=== PATIENT | female | born 1995 | race Caucasian/White ===

== ENCOUNTER 2019-04-17 13:43 | Outpatient (REF) | payer SELFPAY ==
[2019-04-20 13:34] LABS: Chlamydia Result Negative; GC Result Negative; Specimen Description CERVIX
== END 2019-04-17 14:03 ==
LOC: LBN 13:43
PROVIDERS: PCP Pediatrics; Visit Provider Nurse Practitioner Women's Health
DX: Z11.3 Encounter for screening for infections with a predominantly sexual mode of transmission (principal)
CPT/HCPCS: 87491; 87591

== ENCOUNTER 2019-07-03 11:31 | Outpatient (CLI) | payer MEDICAID, SELFPAY ==
[2019-07-04 10:19] LABS: HIV-1/2 Ag & Ab Screen Negative (NEGAT)
[2019-07-06 11:03] LABS: Hepatitis B Surface Ag Negative (NEGAT); Hepatitis C Ab w Rflx HCV PCR Negative (NEGAT)
[2019-07-06 12:26] LABS: Syphilis Serology (RPR) Negative (Negative)
[2019-07-06 15:30] LABS: Chlamydia Result Negative; GC Result Negative; Specimen Description CERVIX
== END 2019-07-03 11:51 ==
PROVIDERS: Visit Provider Nurse Practitioner Women's Health
DX: Z11.3 Encounter for screening for infections with a predominantly sexual mode of transmission (principal)
CPT/HCPCS: 36415; 86803; 87340; 87389; 87491; 87591; 86592

== ENCOUNTER 2019-07-15 12:52 | Outpatient (REF) | payer MEDICAID, SELFPAY ==
[2019-07-15 19:32] LABS: HCT 39.8 % (36.0-46.0); HGB 13.2 g/dL (12.0-15.5); Mean Corp. HGB Concentration 33.2 g/dL (32.0-36.0); Mean Corpuscular Hemoglobin 28.9 pg (27.0-33.0); Mean Corpuscular Volume 87.1 fL (80-95); Mean Platelet Volume 8.9 fL (8.0-11.0); Platelet Count 373 x1000/uL (130-400); RBC 4.57 m/cumm (4.00-5.20); RBC Distribution Width 12.7 % (11.7-14.6); White Blood Cell Count 4.47 k/cumm (4.4-10.8)
[2019-07-15 19:56] LABS: Anion Gap 12.5 mmol/L (3-11); BUN 12 mg/dL (7-18); CO2 25.5 mmol/L (21.0-32.0); CREATININE 0.75 mg/dL (0.55-1.02); Calcium 9.2 mg/dL (8.5-10.1); Chloride 100 mmol/L (98-107); Glucose 74 mg/dL (70-100); Potassium 4.1 mmol/L (3.5-5.1); Sodium 138 mmol/L (136-145); TSH (W/Ref FT4) 1.82 uIU/mL (0.36-3.74)
[2019-07-17 10:59] LABS: Campylobacter PCR SEE COMMENTS; Salmonella PCR SEE COMMENTS; Shiga Toxin PCR SEE COMMENTS; Shigella/Enteroinvasive Ecoli SEE COMMENTS
[2019-07-20 11:12] LABS: IgA 163 mg/dL (85-499)
[2019-07-20 18:39] LABS: Tissue Transglutaminase Ab IgA <1.2 U/mL
== END 2019-07-15 13:12 ==
LOC: NCHCN 12:52
PROVIDERS: Visit Provider Family Medicine
DX: R19.7 Diarrhea, unspecified (principal); F41.8 Other specified anxiety disorders; R14.0 Abdominal distension (gaseous)
CPT/HCPCS: 80048; 82784; 85027; 87329; 87505; 83516; 83630; 84443; 87324

== ENCOUNTER 2020-02-01 15:43 | Outpatient (REF) | payer MEDICAID, SELFPAY | END 2020-02-01 16:03 | LOC: LBN 15:43 | PROVIDERS: Visit Provider Obstetrics & Gynecology | DX: N94.9 Unspecified condition associated with female genital organs and menstrual cycle (principal) | CPT/HCPCS: 87077; 87070; 87186; 87205 ==

== ENCOUNTER 2020-03-07 13:56 | Outpatient (REF) | payer MEDICAID, SELFPAY ==
--- NOTE | 2020-03-07 13:30 | PAPFT_PTH ---
PATIENT: Anige Duvall LOC: [facility] U#:[id number] AGE/SX: 24/F ROOM: RE03/07/[address]: UNA Conde : 1995 BED: DIS: 03/07/2020 SPEC #: [id number] RECD: 03/07/20 16:00 STATUS: TORRES QIU #: [id number] TYESHA: 03/07/20 13:[address]: Kat Garcia DEPT: [facility] Cytology RECD BY: Edgar Peterson Tissues: 1 - CX/ENDOCX FOR PAP SMEARS Procedures: PAP THIN PREP/[facility] Screening Comments: [id number]
[2020-03-09 14:57] LABS: Chlamydia Result Negative (Negative); GC Result Negative (Negative)
== END 2020-03-07 14:16 ==
LOC: LBN 13:56
PROVIDERS: Visit Provider Nurse Practitioner Family
DX: R30.0 Dysuria (principal); Z11.3 Encounter for screening for infections with a predominantly sexual mode of transmission; Z12.4 Encounter for screening for malignant neoplasm of cervix
CPT/HCPCS: 87491; 87591; 88142; 87086

== ENCOUNTER 2020-03-10 01:03 | Outpatient (CLI) | payer MEDICAID, SELFPAY ==
--- NOTE | 2020-03-10 09:06 | DI.US_ITS ---
EXAM: US PELVIS TRANSVAGINAL CLINICAL HISTORY: <Pelvic cramping AND PAIN, R10.2> TECHNIQUE: Ultrasound of the pelvic, both abdominal and transvaginal was performed using standard pr otocol. COMPARISON: No exams were available for comparison FINDINGS: KIDNEYS: Kidneys are symmetric in size. No evidence of renal calculi. No evidence of hydronephrosis. No renal mass or cyst identified. UTERUS: Position: Anteverted. Size: 7.7 by 3 x 4.2 cm Endometrium: 0.6 cm. Normal for patient's menstrual status. Myometrium: Unremarkable. Cervix: Small nabothian cyst. OVARIES: Right: 3.4 x 1.9 x 3 cm Cyst or mass: None. Left: 3 x 1.4 x 2.3 cm Cyst or mass: 2 small exophytic cysts measuring around 1 cm in size. No evidence of torsion.. DOPPLER: Color: Symmetric and uniform flow to both ovaries. No hyperemia. CUL-DE-SAC: Free fluid: None. IMPRESSION: 1. Unremarkable pelvic ultrasound. DATA REPOSITORY:
== END 2020-03-10 01:23 ==
PROVIDERS: PCP Family Medicine; Visit Provider Nurse Practitioner Family
DX: R10.2 Pelvic and perineal pain (principal); N83.292 Other ovarian cyst, left side
CPT/HCPCS: 76830; 76856

== ENCOUNTER 2020-12-06 16:55 | Outpatient (REF) | payer MEDICAID, SELFPAY ==
[2020-12-07 14:22] LABS: Chlamydia Result Negative (Negative); GC Result Negative (Negative)
== END 2020-12-06 17:15 ==
LOC: LBN 16:55
PROVIDERS: PCP Family Medicine; Visit Provider Nurse Practitioner Family
DX: R30.0 Dysuria (principal); Z11.3 Encounter for screening for infections with a predominantly sexual mode of transmission
CPT/HCPCS: 87491; 87591; 87086

== ENCOUNTER 2020-12-07 08:00 | Outpatient (CLI) | payer MEDICAID, SELFPAY ==
[2020-12-08 09:31] LABS: Hepatitis B Surface Ag Negative (Negative)
[2020-12-08 10:44] LABS: Hepatitis C Ab w Rflx HCV PCR Negative (Negative)
[2020-12-08 10:48] LABS: HIV-1/2 Ag & Ab Screen Negative (Negative)
[2020-12-09 13:19] LABS: Syphilis Total Ab w/Reflex Nonreactive (Nonreactive)
== END 2020-12-07 08:20 ==
PROVIDERS: PCP Family Medicine; Visit Provider Nurse Practitioner Family
DX: Z11.3 Encounter for screening for infections with a predominantly sexual mode of transmission (principal); Z11.4 Encounter for screening for human immunodeficiency virus [HIV]; Z11.59 Encounter for screening for other viral diseases
CPT/HCPCS: 36415; 86803; 87340; 87389; 86780

== ENCOUNTER 2021-04-13 20:50 | Outpatient (REF) | payer MEDICAID, SELFPAY ==
[2021-04-13 18:01] LABS: TSH (W/Ref FT4) 1.29 uIU/mL (0.36-3.74)
== END 2021-04-13 20:51 | disposition home or self-care (01) ==
LOC: NCHCN 20:50
PROVIDERS: PCP Family Medicine; Visit Provider Family Medicine
DX: K59.09 Other constipation (principal)
CPT/HCPCS: 84443

== ENCOUNTER 2021-04-14 13:11 | Outpatient (CLI) | payer MEDICAID, SELFPAY ==
--- NOTE | 2021-04-14 | DI.RAD_ITS ---
Exam(s) XR ABDOMEN FLAT PLATE EXAM: XR ABDOMEN FLAT PLATE CLINICAL HISTORY: CONSTIPATION,ABD BLOATING,R14.0,K59.09,COMMENT ON QUANTITY OF STOOL TECHNIQUE: COMPARISON: No exams were available for comparison FINDINGS: Two views were obtained. The bowel gas pattern is unremarkable. No evidence of constipation. No gr oss free air identified on these supine views. No gross organomegaly. IMPRESSION: Negative examination of the abdomen. Normal quantity of stool. RADIATION DOSE DELIVERED: Total DLP
== END 2021-04-14 13:31 ==
PROVIDERS: PCP Family Medicine; Visit Provider Family Medicine
DX: K59.09 Other constipation (principal); R14.0 Abdominal distension (gaseous)
CPT/HCPCS: 74018